=== PATIENT | female | born 1950 | race Asian ===

== ENCOUNTER 2021-10-21 21:54 | Emergency (ER) | payer BC, MEDICAID ==
[~2021-10-21] VITALS: Ht 157.5 cm; Wt 55.0 kg
[2021-10-21] MEDS ORDERED: MORPHINE SULFATE 4 MG/ML SYR/VIAL IV ONE ×2 (22:15→23:00)
[2021-10-22] MEDS ORDERED: MORPHINE SULFATE 4 MG/ML SYR/VIAL IV ONE (00:30)
[2021-10-22 04:10] VITALS: BP 148/70
== END 2021-10-22 05:05 | disposition home or self-care (01) ==
LOC: ER 21:54 → EDBD 21:54 → ER 10-22 05:05
DX: S90.461A Insect bite (nonvenomous), right great toe, initial encounter (principal); S30.861A Insect bite (nonvenomous) of abdominal wall, initial encounter; S30.860A Insect bite (nonvenomous) of lower back and pelvis, initial encounter; W57.XXXA Bitten or stung by nonvenomous insect and other nonvenomous arthropods, initial encounter; Y93.89 Activity, other specified; Y92.89 Other specified places as the place of occurrence of the external cause; Y99.8 Other external cause status
CPT/HCPCS: 96374; 96376; 99285; J2270